=== PATIENT | male | born 1970 | race Asian ===

== ENCOUNTER 2023-10-20 08:44 | Day surgery (SDC) | payer OTHER ==
[2023-10-20] MEDS: Lactated Ringers 1,000 ML IV SCH (09:13)
[2023-10-20] MEDS ORDERED: propofoL 50 ML ONE (11:37)
[2023-10-20] MEDS ORDERED: ePHEDrine 50 MG/ML SDV ONE (11:39)
[2023-10-20] MEDS ORDERED: Water For Injection, Sterile 20 ML ONE (11:39)
== END 2023-10-20 11:30 | disposition home or self-care (01) ==
LOC: MW.SDS 08:44
PROVIDERS: ATTEND Surgery
DX: Z12.11 Encounter for screening for malignant neoplasm of colon (principal); D12.6 Benign neoplasm of colon, unspecified; K57.30 Diverticulosis of large intestine without perforation or abscess without bleeding; E11.9 Type 2 diabetes mellitus without complications; I10 Essential (primary) hypertension; E78.00 Pure hypercholesterolemia, unspecified; E66.9 Obesity, unspecified; Z68.31 Body mass index [BMI] 31.0-31.9, adult; F41.9 Anxiety disorder, unspecified; Z87.891 Personal history of nicotine dependence; Z79.899 Other long term (current) drug therapy
CPT/HCPCS: 45380; J2704; J7120; 00811; J3490